=== PATIENT | female | born 1990 | race Caucasian/White ===

== ENCOUNTER 2017-01-01 15:28 | Emergency (ER) | payer MEDICAID ==
[2017-01-01 15:39] VITALS: RESP 20
[2017-01-01 16:46] LABS: HCG,QUALITATIVE URINE NEGATIVE (NEGATIVE)
[2017-01-01 16:52] LABS: SQUAMOUS EPITHIAL 1 /hpf (0-5); URINE BILIRUBIN NEGATIVE (NEGATIVE); URINE BLOOD 2+ (NEGATIVE); URINE CLARITY Hazy (Clear); URINE COLOR Yellow (YELLOW); URINE GLUCOSE (UA) NORMAL (Normal); URINE LEUKOCYTE ESTERASE 3+ Leu/uL (Negative); URINE NITRATE NEGATIVE (NEGATIVE); URINE PROTEIN 1+ mg/dL (NEGATIVE); URINE UROBILINOGEN NORMAL mg/dL (0.2-1.0)
--- NOTE | 2017-01-01 17:24 | C.PDOC ---
History Of Present Illness 26 y/o female presents to the ED for evaluation of dysuria, increased urinary frequency, urinary urgency, and lower abdominal cramping upon urination since last night. Patient states she has experienced UTI before and notes her current symptoms are similar to prior. She also notes subjective fever. Patient denies back pain, nausea, vomiting. Time Seen by Provider: 01/01/17 15:48 Chief Complaint (Nursing): Female Genitourinary History Per: Patient History/Exam Limitations: no limitations Onset/Duration Of Symptoms: Hrs Current Symptoms Are (Timing): Still Present Quality Of Discomfort: Cramping Associated Symptoms: Fever, Urinary Symptoms (dysuria, frequency, urgency ). denies: Chills, Back Pain Additional History Per: Patient Abnormal Vaginal Bleeding: No Past Medical History Reviewed: Historical Data, Nursing Documentation, Vital Signs Vital Signs: Last Vital Signs Temp 98.0 F 01/01/17 17:32 Pulse 66 01/01/17 17:32 Resp 20 01/01/17 17:32 BP 108/75 01/01/17 17:32 Pulse Ox 96 01/01/17 18:41 - Medical History PMH: No Chronic Diseases Surgical History: No Surg Hx Family History: States: Unknown Family Hx - Social History Hx Tobacco Use: Yes Hx Alcohol Use: Yes Hx Substance Use: No - Immunization History Hx Influenza Vaccination: No Hx Pneumococcal Vaccination: No Review Of Systems Constitutional: Positive for: Fever. Negative for: Chills Gastrointestinal: Positive for: Abdominal Pain (cramping ) Genitourinary: Positive for: Dysuria, Frequency Musculoskeletal: Negative for: Back Pain Physical Exam - Physical Exam Appears: Non-toxic, No Acute Distress Skin: Normal Color, Warm, Dry Head: Atraumatic Eye(s): bilateral: Normal Inspection Oral Mucosa: Moist Gastrointestinal/Abdominal: Soft, Tenderness (mild, mid-suprapubic ), No Guarding, No Rebound Back: Normal Inspection, No CVA Tenderness, No Vertebral Tenderness, No Paraspinal Tenderness Extremity: Normal ROM, Capillary Refill (less than 2 seconds ) Neurological/Psych: Normal Speech, Normal Cognition Gait: Steady ED Course And Treatment O2 Sat by Pulse Oximetry: 96 (on RA) Pulse Ox Interpretation: Normal Progress Note: UA ordered, results are consistent with UTI. Patient received Macrobid PO and Pyridium PO. On reassessment, patient is resting comfortably, showing no signs of distress and reports an improvement in her symptoms. Pt is stable for discharge and is advised to f/u with her PMD within 1-2 days for further evaluation. Disposition - Disposition Disposition: HOME/ ROUTINE Disposition Time: 17:23 Condition: GOOD Additional Instructions: Follow up with your PMD within 1-2 days. Return to ED if feel worse. Prescriptions: Nitrofurantoin Macrocrystals [Macrobid] 1 cap PO BID #14 cap Phenazopyridine [Pyridium] 200 mg PO TID #15 tab Instructions: Urinary Tract Infection in Women (ED) Forms: [employer] (Bulgarian) - Clinical Impression Clinical Impression: Acute urinary tract infection - PA / TAGMAN / Resident Statement MD/DO has reviewed & agrees with the documentation as recorded. - Scribe Statement The provider has reviewed the documentation as recorded by the Scribe (Amparo Robledo) All medical record entries made by the Scribe were at my direction and personally dictated by me. I have reviewed the chart and agree that the record accurately reflects my personal performance of the history, physical exam, medical decision making, and the department course for this patient. I have also personally directed, reviewed, and agree with the discharge instructions and disposition.
[2017-01-01 17:38] VITALS: BP 108/75; PULSE 66; TEMP 98
[2017-01-01 18:38] VITALS: O2SAT 96
== END 2017-01-01 17:38 | disposition home or self-care (01) ==
LOC: C.ER 15:28
DX: N39.0 Urinary tract infection, site not specified (principal); B96.20 Unspecified Escherichia coli [E. coli] as the cause of diseases classified elsewhere